=== PATIENT | male | born 1970 | race Two or more races ===

== ENCOUNTER 2017-10-30 21:22 | Emergency (ER) | payer BC ==
[~2017-10-30] VITALS: Ht 185.4 cm; Wt 82.5 kg
[2017-10-30 21:24] VITALS: BP 123/82
== END 2017-10-30 21:56 ==
LOC: ED 21:53
DX: R10.9 Unspecified abdominal pain (principal); R19.7 Diarrhea, unspecified; Z53.21 Procedure and treatment not carried out due to patient leaving prior to being seen by health care provider